=== PATIENT | female | born 1955 | race American Indian/Alaskan Native ===

== ENCOUNTER 2018-04-23 09:15 | Outpatient (CLI) | payer MEDICARE ==
[2018-04-23 09:45] LABS: Basophils % (Auto) 0.6 % (0.0-1.8); Eosinophils # (Auto) 0.1 K/mm3 (0.0-0.4); Hematocrit 35.2 % (30.3-42.9); Hemoglobin 11.9 gm/dl (10.1-14.3); Lymphocytes # (Auto) 0.8 K/mm3 (1.2-5.4); Lymphocytes % (Auto) 16.2 % (13.4-35.0); Mean Corpuscular HGB Conc 34 % (30-34); Mean Corpuscular Hemoglobin 30 pg (28-32); Mean Corpuscular Volume 89 fl (79-97); Monocytes # (Auto) 0.6 K/mm3 (0.0-0.8); Monocytes % (Auto) 11.2 % (0.0-7.3); Platelet Count 168 K/mm3 (140-440); Red Blood Count 3.94 M/mm3 (3.65-5.03); Red Cell Distribution Width 14.6 % (13.2-15.2)
[2018-04-23 09:58] LABS: Partial Thromboplastin Time 25.2 Sec. (24.2-36.6)
[2018-04-23 09:59] LABS: Albumin 3.9 g/dL (3.9-5); Calcium 9.3 mg/dL (8.4-10.2)
--- NOTE | 2018-04-23 10:33 | XRay Report ---
Chest 2 views: History: Cough. Findings: Normal cardiomediastinal silhouette. Trachea is midline. No consolidation, pneumothorax or pleural effusion. Impression: No acute cardiopulmonary findings.
== END 2018-04-23 09:16 | disposition home or self-care (01) ==
LOC: CARD 09:15
PROVIDERS: ATTEND Internal Medicine
DX: R05 Cough (principal); R07.9 Chest pain, unspecified; R53.83 Other fatigue; R79.1 Abnormal coagulation profile; F17.210 Nicotine dependence, cigarettes, uncomplicated; I10 Essential (primary) hypertension; E11.9 Type 2 diabetes mellitus without complications; Z90.49 Acquired absence of other specified parts of digestive tract; Z79.01 Long term (current) use of anticoagulants
CPT/HCPCS: 36415; 71046; 80053; 85025; 85610; 85730; 93005; 93010

== ENCOUNTER 2019-04-13 19:20 | Observation (INO) | payer MEDICARE ==
--- NOTE | 2019-04-13 19:38 | Emergency Department Report ---
Blank Doc - Documentation Documentation: This is a 64-year-old female that presents with bilateral feet swelling, chest pain and SOB. This initial assessment/diagnostic orders/clinical plan/treatment(s) is/are subject to change based on patient's health status, clinical progression and re- assessment by fellow clinical providers in the ED. Further treatment and workup at subsequent clinical providers discretion. Patient/guardians urged not to elope from the ED as their condition may be serious if not clinically assessed and managed. Initial orders include: 1- Patient sent to MAIN ED for further evaluation and treatment 2- EKG 3- CXR 4- labs
[2019-04-13 20:06] LABS: Basophils % (Auto) 0.7 % (0.0-1.8); Eosinophils # (Auto) 0.1 K/mm3 (0.0-0.4); Eosinophils % (Auto) 1.6 % (0.0-4.3); Hematocrit 33.5 % (30.3-42.9); Hemoglobin 11.4 gm/dl (10.1-14.3); Lymphocytes # (Auto) 2.2 K/mm3 (1.2-5.4); Lymphocytes % (Auto) 35.6 % (13.4-35.0); Mean Corpuscular HGB Conc 34 % (30-34); Mean Corpuscular Volume 92 fl (79-97); Monocytes # (Auto) 0.4 K/mm3 (0.0-0.8); Platelet Count 185 K/mm3 (140-440); Red Blood Count 3.62 M/mm3 (3.65-5.03)
[2019-04-13 20:15] LABS: INR 1.2 (0.87-1.13); Partial Thromboplastin Time 26.7 Sec. (24.2-36.6)
[2019-04-13 20:34] LABS: BUN/Creatinine Ratio 12; Blood Urea Nitrogen 14 mg/dL (7-17); Calcium 9.3 mg/dL (8.4-10.2); Hemolysis Index 13
--- NOTE | 2019-04-13 21:13 | Emergency Department Report ---
ED Chest Pain HPI - General Chief Complaint: Chest Pain Stated Complaint: CHEST PAIN/FEET SWELLING Time Seen by Provider: 04/13/19 21:01 Source: patient Mode of arrival: Ambulatory Limitations: No Limitations - History of Present Illness Initial Comments: Patient is a 64-year-old female that presents emergency room with complaints of chest pain. Patient states her chest pain is intermittent over the last 3-4 days. Patient states today she started having chest pain radiating to her left shoulder and left arm. Patient states her chest pain as a 6 out of 10. Patient states her pain is better with rest and worse with exertion. Patient is also complaining of bilateral lower extremity swelling. Patient denies lower externally pain. Patient states she is having dyspnea on exertion and shortness of breath at the same time when her chest pain comes on. Patient states she was recently taken off of lisinopril secondary to a cough. Patient's PCP is Dr. Miller. Complaint: chest pain -: Sudden Onset: during rest, during exertion Pain Location: substernal, left chest Pain Radiation: LUE Severity: moderate Severity scale (0 -10): 6 Quality: heaviness, sharp Consistency: intermittent Improves With: rest Worsens With: exertion re: dyspnea. denies: nausea, vomting, diaphoresis, sense of impending doom Other Symptoms: leg swelling. denies: cough, fever, syncope, rash, acid taste in mouth, palpitations, burping Treatments Prior to Arrival: none Aspirin use within the Past 7 Days: (1) Yes - Related Data On Oral Contraceptives: No Home Medications Medication Instructions Recorded Confirmed Last Taken Aspirin [Aspirin BABY CHEW TAB] 1 tab PO DAILY 08/28/14 04/13/19 08/17/15 Carvedilol [Coreg] 25 mg PO BID 08/28/14 04/13/19 08/17/15 Glimepiride 4 mg PO QDAY 08/28/14 04/13/19 08/17/15 Meloxicam [Mobic] 7.5 mg PO BID PRN 04/13/19 04/13/19 Unknown Previous Rx's Medication Instructions Recorded Last Taken Type HYDROcodone/APAP 10-325 [Gaines 10 - 325 mg PO TID PRN #1 tablet 08/17/15 Unknown Rx 10-325 mg TAB] Allergies Allergy/AdvReac Type Severity Reaction Status Date / Time lisinopril Allergy Unknown Verified 04/13/19 22:59 steroid pills Allergy Itching Uncoded 08/17/15 13:16 Heart Score - HEART Score History: Moderately suspicious EKG: Non-specific Age: 45-65 Risk factors: No known risk factors Troponin: < normal limit HEART Score: 3 ED Review of Systems ROS: Stated complaint: CHEST PAIN/FEET SWELLING Other details as noted in HPI Constitutional: denies: chills, fever Eyes: denies: eye pain, eye discharge, vision change ENT: denies: ear pain, throat pain Respiratory: shortness of breath, SOB with exertion, SOB at rest. denies: cough, wheezing Cardiovascular: chest pain, edema. denies: palpitations Endocrine: no symptoms reported Gastrointestinal: denies: abdominal pain, nausea, diarrhea Genitourinary: denies: urgency, dysuria, discharge Musculoskeletal: denies: back pain, joint swelling, arthralgia Skin: denies: rash, lesions Neurological: denies: headache, weakness, paresthesias Psychiatric: denies: anxiety, depression Hematological/Lymphatic: denies: easy bleeding, easy bruising ED Past Medical Hx - Past Medical History Previous Medical History?: Yes Hx Hypertension: Yes Hx Diabetes: Yes Additional medical history: high cholesterol. L shoulder pain - Surgical History Past Surgical History?: Yes Hx Cholecystectomy: Yes Additional Surgical History: T.L. carpal tunnel surgery - Family History Family history: no significant - Social History Smoking Status: Current Every Day Smoker Substance Use Type: Marijuana - Medications Home Medications: Home Medications Medication Instructions Recorded Confirmed Last Taken Type Aspirin [Aspirin BABY CHEW TAB] 1 tab PO DAILY 08/28/14 04/13/19 08/17/15 History Carvedilol [Coreg] 25 mg PO BID 08/28/14 04/13/19 08/17/15 History Glimepiride 4 mg PO QDAY 08/28/14 04/13/19 08/17/15 History HYDROcodone/APAP 10-325 [Gaines 10 - 325 mg PO TID PRN #1 tablet 08/17/15 04/13/19 Unknown Rx 10-325 mg TAB] Meloxicam [Mobic] 7.5 mg PO BID PRN 04/13/19 04/13/19 Unknown History ED Physical Exam - General Limitations: No Limitations General appearance: alert, in no apparent distress - Head Head exam: Present: atraumatic, normocephalic - Eye Eye exam: Present: normal appearance - ENT ENT exam: Present: mucous membranes moist - Neck Neck exam: Present: normal inspection - Respiratory Respiratory exam: Present: normal lung sounds bilaterally. Absent: respiratory distress, wheezes, chest wall tenderness, accessory muscle use - Cardiovascular Cardiovascular Exam: Present: regular rate, normal rhythm. Absent: systolic murmur, diastolic murmur, rubs, gallop - GI/Abdominal GI/Abdominal exam: Present: soft, normal bowel sounds. Absent: distended, tenderness, guarding - Rectal Rectal exam: Present: deferred - Extremities Exam Extremities exam: Present: normal inspection (except for bilateral pedal edema.), full ROM, normal capillary refill, pedal edema. Absent: tenderness, joint swelling, calf tenderness - Back Exam Back exam: Present: normal inspection - Neurological Exam Neurological exam: Present: alert, oriented X3 - Psychiatric Psychiatric exam: Present: normal affect, normal mood - Skin Skin exam: Present: warm, dry, intact, normal color. Absent: rash ED Course Vital Signs 04/13/19 04/13/19 04/13/19 19:36 19:37 21:20 Temperature 97.6 F 97.9 F Pulse Rate 45 L 48 L 57 L Respiratory 18 12 Rate Blood Pressure 159/78 Blood Pressure 145/57 [Left] O2 Sat by Pulse 100 99 Oximetry 04/13/19 04/13/19 04/13/19 21:30 22:00 22:16 Temperature Pulse Rate 47 L 49 L 48 L Respiratory 10 L 13 13 Rate Blood Pressure 145/57 143/73 125/68 Blood Pressure [Left] O2 Sat by Pulse 94 97 100 Oximetry 04/13/19 04/13/19 04/13/19 22:30 22:46 23:00 Temperature Pulse Rate 43 L 46 L 50 L Respiratory 12 14 14 Rate Blood Pressure 142/61 147/64 147/64 Blood Pressure [Left] O2 Sat by Pulse 98 96 100 Oximetry - Reevaluation(s) Reevaluation #1: Discussed all results with patient. Patient will be admitted to the hospitalist service. Patient agrees to plan of care. 04/13/19 22:34 - Consultations Consultation #1: Hospitalist consultation for admission. Hospitalist to admit patient. Hospitalist to assume care patient. 04/13/19 22:34 YONG score - Yong Score Age > 65: (0) No Aspirin use within the Past 7 Days: (1) Yes 3 or more CAD Risk Factors: (0) No 2 or more Angina events in past 24 hrs: (1) Yes Known CAD with more than 50% Stenosis: (0) No Elevated Cardiac Markers: (0) No ST Deviation Greater than 0.5mm: (0) No YONG Score: 2 ED Medical Decision Making - Lab Data Result diagrams: 04/13/19 19:51 04/13/19 19:51 - EKG Data -: EKG Interpreted by Me EKG shows normal: sinus rhythm, axis, intervals, QRS complexes, ST-T waves Rate: bradycardia - Radiology Data Radiology results: report reviewed, image reviewed interpreted by me: Negative chest x-ray PROCEDURE: XR CHEST ROUTINE 2V TECHNIQUE: PA and lateral chest radiographs were obtained. HISTORY: Chest Pain COMPARISONS: 04/23/2018. FINDINGS: Heart: Normal. Mediastinum/Vessels: Normal. Lungs/Pleural space: No infiltrate, effusion, or pneumothorax. Bony thorax: No acute osseous abnormality. IMPRESSION: No radiographic evidence of acute abnormality. - Medical Decision Making Patient is a 64-year-old female that presents to emergency room with chest pain and shortness of breath. Chest pain radiating to her left upper extremity. Patient was admitted to the hospitalist service for further evaluation and treatment. Patient's labs are unremarkable. Patient's BMP negative. Patient's troponin negative. Patient's initial cardiac workup negative. Patient chest x-ray negative. - Differential Diagnosis chest pain. Shortness breath. ACS. Critical Care Time: Yes Critical care attestation.: If time is entered above; I have spent that time in minutes in the direct care of this critically ill patient, excluding procedure time. Critical Care Time: 35 minutes ED Disposition Clinical Impression: SOB (shortness of breath), Pedal edema, Bradycardia Chest pain Qualifiers: Chest pain type: unspecified Qualified Code(s): R07.9 - Chest pain, unspecified Hypertension Qualifiers: Hypertension type: essential hypertension Qualified Code(s): I10 - Essential (primary) hypertension Disposition: OP ADMIT IP TO THIS HOSP Is pt being admited?: Yes Does the pt Need Aspirin: No Condition: Critical Instructions: Hypertension (ED) Referrals: HARRISON MILLER MD [Primary Care Provider] - 3-5 Days Time of Disposition: 22:36
[2019-04-13] MEDS ORDERED: ASPIRIN PO ONE (22:36)
[2019-04-13] MEDS ORDERED: MORPHINE IV ONE (22:40)
--- NOTE | 2019-04-13 22:56 | XRay Report ---
PROCEDURE: XR CHEST ROUTINE 2V TECHNIQUE: PA and lateral chest radiographs were obtained. HISTORY: Chest Pain COMPARISONS: 04/23/2018. FINDINGS: Heart: Normal. Mediastinum/Vessels: Normal. Lungs/Pleural space: No infiltrate, effusion, or pneumothorax. Bony thorax: No acute osseous abnormality. IMPRESSION: No radiographic evidence of acute abnormality. This document is electronically signed by Hilda Farr MD., Apr 13 2019 10:54:42 PM ET
[2019-04-13] MEDS ORDERED: MORPHINE IV PRN (23:16)
[2019-04-13] MEDS ORDERED: ZOFRAN IV PRN (23:16)
[2019-04-13] MEDS ORDERED: TYLENOL PO PRN (23:16)
[2019-04-13] MEDS ORDERED: SODIUM CHLORIDE FLUSH SYRINGE 10 ML IV PRN (23:16)
[2019-04-13] MEDS ORDERED: NITROSTAT SL PRN (23:18)
--- NOTE | 2019-04-14 00:15 | History and Physical Report ---
<VANE CHAPMAN - Last Filed: 04/14/19 00:48> History of Present Illness Date of examination: 04/13/19 Date of admission: 04/13/19 23:16 Chief complaint: Chest pain History of present illness: 64-year-old -Russian female with history of marijuana abuse, diabetes, hypertension who presents to [facility] ED with complaints of intermittent chest pain for the past 4 days. Patient states that her chest pain is left-sided substernal radiates to left extremity and right side of chest. She describes her pain as sharp and rates it 8/10. Her pain is activated with activity and relieved with rest. Associated factors includes dyspnea with exertion when experiencing chest pain. Additionally she complains of bilateral lower extremity edema for the past 3 weeks. Patient states that she has been experiencing lower extremity edema since her PCP discontinued lisinopril. Denies fever, chills, hemoptysis, nausea, vomiting, headache or diaphoresis. Past History Past Medical History: diabetes, hypertension, hyperlipidemia Past Surgical History: Other (tubal ligation, carpal tunnel surgery) Social history: smoking (marijuana) Medications and Allergies Allergies Allergy/AdvReac Type Severity Reaction Status Date / Time lisinopril Allergy Unknown Verified 04/13/19 22:59 steroid pills Allergy Itching Uncoded 08/17/15 13:16 Home Medications Medication Instructions Recorded Confirmed Last Taken Type Aspirin [Aspirin BABY CHEW TAB] 1 tab PO DAILY 08/28/14 04/13/19 08/17/15 History Glimepiride 4 mg PO QDAY 08/28/14 04/13/19 08/17/15 History HYDROcodone/APAP 10-325 [Gustine 10 - 325 mg PO TID PRN #1 tablet 08/17/15 04/13/19 Unknown Rx 10-325 mg TAB] Meloxicam [Mobic] 7.5 mg PO BID PRN 04/13/19 04/13/19 Unknown History Active Meds: Active Medications Acetaminophen (Tylenol) 650 mg PO Q4H PRN PRN Reason: Pain MILD(1-3)/Fever >100.5/BLANKENSHIP Aspirin (Baby Aspirin) 81 mg PO QDAY KAVITA Atorvastatin Calcium (Lipitor) 20 mg PO QHS KAVITA Carvedilol (Coreg) 25 mg PO BID KAVITA Clopidogrel Bisulfate (Plavix) 75 mg PO QDAY KAVITA Morphine Sulfate (Morphine) 2 mg IV Q4H PRN PRN Reason: Pain, Moderate (4-6) Stop: 04/14/19 23:59 Nitroglycerin (Nitrostat) 0.4 mg SL Q5M PRN PRN Reason: Chest Pain Ondansetron HCl (Zofran) 4 mg IV Q8H PRN PRN Reason: Nausea And Vomiting Sodium Chloride (Sodium Chloride Flush Syringe 10 Ml) 10 ml IV BID KAVITA Sodium Chloride (Sodium Chloride Flush Syringe 10 Ml) 10 ml IV PRN PRN PRN Reason: LINE FLUSH Review of Systems All systems: negative (we reviewed and no additional remarkable complaints except as noted below) Cardiovascular: chest pain, shortness of breath Respiratory: cough, shortness of breath, dyspnea on exertion Exam - Physical Exam Narrative exam: Physical exam General appearance: Present: Mild distress, looks stated age, alert and oriented 3 - EENT Eyes: Present: PERRL, EOM intact ENT: hearing intact, normal dentition - Neck Neck: Present: supple, normal ROM - Respiratory Respiratory effort: Non-labored Respiratory: bilateral: diminished (bases) - Cardiovascular Heart rate: 39 (bpm) Rhythm: Sinus bradycardia Heart Sounds: Present: S1 & S2. Absent: rub, click - Extremities Extremities: no ischemia, pulses intact, abnormal (2+ pitting BLE edema) - Peripheral Assessment Peripheral Pulses: within normal limits - Abdominal General gastrointestinal: soft, non-tender, normal bowel sounds - Integumentary Integumentary: Present: warm, dry - Musculoskeletal Musculoskeletal: Able to move all extremities - Psychiatric Psychiatric: Appropriate for situation, cooperative - Constitutional Vitals: Temp Pulse Resp BP Pulse Ox 97.9 F 50 L 14 147/64 100 04/13/19 21:20 04/13/19 23:00 04/13/19 23:00 04/13/19 23:00 04/13/19 23:00 Results - Labs CBC & Chem 7: 04/13/19 19:51 04/13/19 19:51 Labs: Laboratory Last Values WBC 6.2 K/mm3 (4.5-11.0) 04/13/19 19:51 RBC 3.62 M/mm3 (3.65-5.03) L 04/13/19 19:51 Hgb 11.4 gm/dl (10.1-14.3) 04/13/19 19:51 Hct 33.5 % (30.3-42.9) 04/13/19 19:51 MCV 92 fl (79-97) 04/13/19 19:51 MCH 31 pg (28-32) 04/13/19 19:51 MCHC 34 % (30-34) 04/13/19 19:51 RDW 15.0 % (13.2-15.2) 04/13/19 19:51 Plt Count 185 K/mm3 (140-440) 04/13/19 19:51 Lymph % (Auto) 35.6 % (13.4-35.0) H 04/13/19 19:51 [place] % (Auto) 7.0 % (0.0-7.3) 04/13/19 19:51 Eos % (Auto) 1.6 % (0.0-4.3) 04/13/19 19:51 Baso % (Auto) 0.7 % (0.0-1.8) 04/13/19 19:51 Lymph # 2.2 K/mm3 (1.2-5.4) 04/13/19 19:51 [place] # 0.4 K/mm3 (0.0-0.8) 04/13/19 19:51 Eos # 0.1 K/mm3 (0.0-0.4) 04/13/19 19:51 Baso # 0.0 K/mm3 (0.0-0.1) 04/13/19 19:51 Seg Neutrophils % 55.1 % (40.0-70.0) 04/13/19 19:51 Seg Neutrophils # 3.4 K/mm3 (1.8-7.7) 04/13/19 19:51 PT 16.0 Sec. (12.2-14.9) H 04/13/19 19:51 INR 1.20 (0.87-1.13) H 04/13/19 19:51 APTT 26.7 Sec. (24.2-36.6) 04/13/19 19:51 Sodium 142 mmol/L (137-145) 04/13/19 19:51 Potassium 3.8 mmol/L (3.6-5.0) 04/13/19 19:51 Chloride 107.0 mmol/L (98-107) 04/13/19 19:51 Carbon Dioxide 24 mmol/L (22-30) 04/13/19 19:51 15 mmol/L 04/13/19 19:51 BUN 14 mg/dL (7-17) 04/13/19 19:51 1.2 mg/dL (0.7-1.2) 04/13/19 19:51 Estimated GFR 55 ml/min 04/13/19 19:51 12 % 04/13/19 19:51 Glucose 127 mg/dL (65-100) H 04/13/19 19:51 Calcium 9.3 mg/dL (8.4-10.2) 04/13/19 19:51 < 0.010 ng/mL (0.00-0.029) 04/13/19 22:28 NT-Pro-B Natriuret Pep 423.8 pg/mL (0-900) 04/13/19 19:51 Short CBC 04/13/19 Range/Units 19:51 WBC 6.2 (4.5-11.0) K/mm3 Hgb 11.4 (10.1-14.3) gm/dl Hct 33.5 (30.3-42.9) % Plt Count 185 (140-440) K/mm3 BMP 04/13/19 19:51 Sodium 142 Potassium 3.8 Chloride 107.0 Carbon Dioxide 24 BUN 14 Creatinine 1.2 Glucose 127 H Calcium 9.3 Cardiac Enzymes 04/13/19 04/13/19 Range/Units 19:51 22:28 Troponin T < 0.010 < 0.010 (0.00-0.029) ng/mL - Imaging and Cardiology EKG: image reviewed (sinus bradycardia at 39 bpm, unrevealing for acute ischemic abnormalities) Chest x-ray: report reviewed (unrevealing for acute cardiopulmonary abnormalities), image reviewed Assessment and Plan Assessment and plan: 64-year-old -Russian female with history of marijuana abuse, diabetes, hypertension who presents to [facility] ED with complaints of intermittent chest pain for the past 4 days. Additionally she complains of bilateral lower extremity edema for the past 3 weeks. CXR unrevealing for any acute cardiopulmonary abnormalities. EKG reveals sinus bradycardia at 39 bpm. Troponin negative 2. Will admit as OBS to telemetry unit for continuous telemetry monitoring. Patient will be kept nothing by mouth with plans for Lexiscan and echo in the morning. Cardiology has been consulted. ACS Acute chest pain Sinus bradycardia Hypertension DM2 Marijuana abuse Plan: Continue supportive care Pain management Continuous telemetry monitoring Nothing by mouth 1 time dose Lasix 40 mg Monitor BP Hold beta marlyn Start Norvasc 5 mg daily IV hydralazine when necessary Aspirin, Plavix, statin HgbA1c pending POC BG monitoring Sliding-scale coverage Echo and Lexiscan pending Cardiology consultation Counseled for marijuana cessation DVT PPX on plavix and SCD's Advance Directives: No VTE prophylaxis?: Chemical Plan of care discussed with patient/family: Yes <TOYA VALDOVINOS - Last Filed: 04/15/19 07:11> History of Present Illness Date of admission: 04/13/19 23:16 Exam - Constitutional Vitals: Temp Pulse Resp BP Pulse Ox 97.6 F 42 L 14 144/69 100 04/14/19 08:04 04/14/19 14:46 04/14/19 08:04 04/14/19 09:20 04/14/19 08:04 Results - Labs CBC & Chem 7: 04/14/19 04:53 04/14/19 04:53 Labs: Laboratory Last Values WBC 5.6 K/mm3 (4.5-11.0) 04/14/19 04:53 RBC 3.50 M/mm3 (3.65-5.03) L 04/14/19 04:53 Hgb 10.7 gm/dl (10.1-14.3) 04/14/19 04:53 Hct 32.1 % (30.3-42.9) 04/14/19 04:53 MCV 92 fl (79-97) 04/14/19 04:53 MCH 31 pg (28-32) 04/14/19 04:53 MCHC 33 % (30-34) 04/14/19 04:53 RDW 15.2 % (13.2-15.2) 04/14/19 04:53 Plt Count 162 K/mm3 (140-440) 04/14/19 04:53 Lymph % (Auto) 33.7 % (13.4-35.0) 04/14/19 04:53 [place] % (Auto) 7.9 % (0.0-7.3) H 04/14/19 04:53 Eos % (Auto) 1.7 % (0.0-4.3) 04/14/19 04:53 Baso % (Auto) 0.7 % (0.0-1.8) 04/14/19 04:53 Lymph # 1.9 K/mm3 (1.2-5.4) 04/14/19 04:53 [place] # 0.4 K/mm3 (0.0-0.8) 04/14/19 04:53 Eos # 0.1 K/mm3 (0.0-0.4) 04/14/19 04:53 Baso # 0.0 K/mm3 (0.0-0.1) 04/14/19 04:53 Seg Neutrophils % 56.0 % (40.0-70.0) 04/14/19 04:53 Seg Neutrophils # 3.1 K/mm3 (1.8-7.7) 04/14/19 04:53 PT 16.0 Sec. (12.2-14.9) H 04/13/19 19:51 INR 1.20 (0.87-1.13) H 04/13/19 19:51 APTT 26.7 Sec. (24.2-36.6) 04/13/19 19:51 Sodium 142 mmol/L (137-145) 04/14/19 04:53 Potassium 3.5 mmol/L (3.6-5.0) L 04/14/19 04:53 Chloride 106.8 mmol/L (98-107) 04/14/19 04:53 Carbon Dioxide 24 mmol/L (22-30) 04/14/19 04:53 15 mmol/L 04/14/19 04:53 BUN 12 mg/dL (7-17) 04/14/19 04:53 1.2 mg/dL (0.7-1.2) 04/14/19 04:53 Estimated GFR 55 ml/min 04/14/19 04:53 10 % 04/14/19 04:53 Glucose 116 mg/dL (65-100) H 04/14/19 04:53 POC Glucose 147 (70-105) H 04/14/19 12:00 6.6 % (4-6) H 04/13/19 23:37 Calcium 9.0 mg/dL (8.4-10.2) 04/14/19 04:53 < 0.010 ng/mL (0.00-0.029) 04/13/19 22:28 NT-Pro-B Natriuret Pep 423.8 pg/mL (0-900) 04/13/19 19:51 Triglycerides 131 mg/dL (2-149) 04/13/19 23:37 Cholesterol 129 mg/dL (50-199) 04/13/19 23:37 92 mg/dL (50-130) 04/13/19 23:37 30 mg/dL (40-59) L 04/13/19 23:37 4.30 % 04/13/19 23:37 TSH 4.440 mlU/mL (0.270-4.200) H 04/14/19 11:25 Free T4 0.90 ng/dL (0.76-1.46) 04/14/19 11:25 Assessment and Plan Assessment and plan: I personally discussed the patient with the ETCHER MACHINE-C. I agree with the above assessment and plan
[2019-04-14] MEDS ORDERED: APRESOLINE IV PRN (00:51)
[2019-04-14] MEDS ORDERED: D50W (25GM) Syringe IV PRN (00:53)
[2019-04-14] MEDS ORDERED: LASIX IV ONE (01:00)
[2019-04-14 01:17] LABS: Chol/HDL Ratio 4.3 %
[2019-04-14 05:52] LABS: Basophils % (Auto) 0.7 % (0.0-1.8); Eosinophils # (Auto) 0.1 K/mm3 (0.0-0.4); Eosinophils % (Auto) 1.7 % (0.0-4.3); Hematocrit 32.1 % (30.3-42.9); Hemoglobin 10.7 gm/dl (10.1-14.3); Lymphocytes # (Auto) 1.9 K/mm3 (1.2-5.4); Lymphocytes % (Auto) 33.7 % (13.4-35.0); Mean Corpuscular HGB Conc 33 % (30-34); Mean Corpuscular Volume 92 fl (79-97); Monocytes # (Auto) 0.4 K/mm3 (0.0-0.8); Monocytes % (Auto) 7.9 % (0.0-7.3); Platelet Count 162 K/mm3 (140-440); Red Cell Distribution Width 15.2 % (13.2-15.2)
[2019-04-14] MEDS: HumaLOG SUB-Q SCH ×2 (07:30→11:30)
[2019-04-14] MEDS ORDERED: LEXISCAN IV ONE (09:00)
[2019-04-14] MEDS ORDERED: PLAVIX PO SCH (10:00)
[2019-04-14] MEDS ORDERED: COREG PO SCH (10:00)
[2019-04-14] MEDS ORDERED: SODIUM CHLORIDE FLUSH SYRINGE 10 ML IV SCH (10:00)
[2019-04-14] MEDS ORDERED: BABY ASPIRIN PO SCH (10:00)
[2019-04-14] MEDS ORDERED: NORVASC PO SCH (10:00)
--- NOTE | 2019-04-14 10:46 | Consultation ---
History of Present Illness Consult date: 04/14/19 Requesting physician: VANE CHAPMAN Consult reason: chest pain History of present illness: The patient is a 64-year-old female with a past medical history of HTN, HLP, DM, tobacco use. She is previously unknown to our practice. Her PCP is Dr. Wheat. She presented to emergency room with complaints of chest pain for the past 3-4 days. She describes her chest pain as an intermittent precordial stabbing and pressure which has no clear aggravating or alleviating factors. Pt also reports some intermittent SOB and BLE edema which has resolved since receiving IV lasix. Pt reports that she was recently taken off lisinopril due to a cough. She states that her symptoms developed after discontinuation of lisinopril. Pt was scheduled for stress test and is evaluated in stress lab. She currently denies any chest pain. She denies any palpitations, n/v, diaphoresis, dizziness or syncope. She denies any history of CAD, AMI or HF. She reports that she underwent stress testing about 2 years ago at [place] and was told the stress test was normal. Past History Past Medical History: diabetes, hypertension, hyperlipidemia Past Surgical History: Other (tubal ligation, carpal tunnel surgery) Social history: smoking (tobacco ) Medications and Allergies Allergies Allergy/AdvReac Type Severity Reaction Status Date / Time lisinopril Allergy Unknown Verified 04/13/19 22:59 steroid pills Allergy Itching Uncoded 08/17/15 13:16 Home Medications Medication Instructions Recorded Confirmed Last Taken Type Aspirin [Aspirin BABY CHEW TAB] 1 tab PO DAILY 08/28/14 04/13/19 08/17/15 History Carvedilol [Coreg] 25 mg PO BID 08/28/14 04/13/19 08/17/15 History Glimepiride 4 mg PO QDAY 08/28/14 04/13/19 08/17/15 History HYDROcodone/APAP 10-325 [[place] 10 - 325 mg PO TID PRN #1 tablet 08/17/15 04/13/19 Unknown Rx 10-325 mg TAB] Meloxicam [Mobic] 7.5 mg PO BID PRN 04/13/19 04/13/19 Unknown History Active Meds: Active Medications Acetaminophen (Tylenol) 650 mg PO Q4H PRN PRN Reason: Pain MILD(1-3)/Fever >100.5/BLANKENSHIP Amlodipine Besylate (Norvasc) 5 mg PO QDAY [facility] Aspirin (Baby Aspirin) 81 mg PO QDAY [facility] Atorvastatin Calcium (Lipitor) 20 mg PO QHS [facility] Clopidogrel Bisulfate (Plavix) 75 mg PO QDAY [facility] Dextrose (D50w (25gm) Syringe) 50 ml IV PRN PRN PRN Reason: Hypoglycemia Hydralazine HCl (Apresoline) 10 mg IV Q4HR PRN PRN Reason: Blood Pressure Insulin Human Lispro (Humalog) 0 unit SUB-Q ACHS [facility]; Protocol Morphine Sulfate (Morphine) 2 mg IV Q4H PRN PRN Reason: Pain, Moderate (4-6) Stop: 04/14/19 23:59 Nitroglycerin (Nitrostat) 0.4 mg SL Q5M PRN PRN Reason: Chest Pain Ondansetron HCl (Zofran) 4 mg IV Q8H PRN PRN Reason: Nausea And Vomiting Sodium Chloride (Sodium Chloride Flush Syringe 10 Ml) 10 ml IV BID [facility] Sodium Chloride (Sodium Chloride Flush Syringe 10 Ml) 10 ml IV PRN PRN PRN Reason: LINE FLUSH Last Admin: 04/14/19 02:02 Dose: 10 ml Documented by: Review of Systems Constitutional: no weight loss, no weight gain, no fever, no chills, no sweats Ears, nose, mouth and throat: no ear pain, no nose pain, no sinus pressure, no sinus pain Cardiovascular: chest pain, orthopnea, edema, shortness of breath, dyspnea on exertion, leg edema, no palpitations, no rapid/irregular heart beat, no syncope, no lightheadedness Respiratory: shortness of breath, dyspnea on exertion, no cough, no congestion, no wheezing, no pain on inspiration Gastrointestinal: no abdominal pain, no nausea, no vomiting, no diarrhea, no constipation, no change in bowel habits Genitourinary Female: no pelvic pain, no flank pain, no dysuria, no urinary frequency, no urgency Musculoskeletal: no neck stiffness, no neck pain, no shooting arm pain, no arm numbness/tingling, no low back pain, no shooting leg pain Integumentary: no rash, no pruritis, no redness, no sores, no wounds Neurological: no head injury, no paralysis, no weakness, no parathesias, no numbness, no tingling, no seizures, no syncope Psychiatric: no anxiety Endocrine: no cold intolerance, no heat intolerance Hematologic/Lymphatic: no easy bruising, no easy bleeding Allergic/Immunologic: no urticaria, no wheezing Physical Examination Vital Signs Temp Pulse Resp BP Pulse Ox 97.6 F 45 L 18 159/78 100 04/13/19 19:36 04/13/19 19:36 04/13/19 19:36 04/13/19 19:36 04/13/19 19:36 General appearance: no acute distress HEENT: Positive: PERRL, Normocephaly, Mucus Membranes Moist Neck: Positive: neck supple, trachea midline Cardiac: Positive: Reg Rate and Rhythm, S1/S2 Lungs: Positive: clear to auscultation Neuro: Positive: Grossly Intact Abdomen: Positive: Soft, Tender Skin: Negative: Rash, Wound Musculoskeletal: No Pain Extremities: Absent: edema Results 04/14/19 04:53 04/14/19 04:53 Coagulation 04/13/19 Range/Units 19:51 PT 16.0 H (12.2-14.9) Sec. INR 1.20 H (0.87-1.13) APTT 26.7 (24.2-36.6) Sec. Lipids 04/13/19 Range/Units 23:37 Triglycerides 131 (2-149) mg/dL Cholesterol 129 (50-199) mg/dL HDL Cholesterol 30 L (40-59) mg/dL Cholesterol/HDL Ratio 4.30 % CBC 04/13/19 04/14/19 Range/Units 19:51 04:53 WBC 6.2 5.6 (4.5-11.0) K/mm3 RBC 3.62 L 3.50 L (3.65-5.03) M/mm3 Hgb 11.4 10.7 (10.1-14.3) gm/dl Hct 33.5 32.1 (30.3-42.9) % Plt Count 185 162 (140-440) K/mm3 Lymph # 2.2 1.9 (1.2-5.4) K/mm3 [place] # 0.4 0.4 (0.0-0.8) K/mm3 Eos # 0.1 0.1 (0.0-0.4) K/mm3 Baso # 0.0 0.0 (0.0-0.1) K/mm3 Comprehensive Metabolic Panel 04/13/19 04/14/19 Range/Units 19:51 04:53 Sodium 142 142 (137-145) mmol/L Potassium 3.8 3.5 L (3.6-5.0) mmol/L Chloride 107.0 106.8 (98-107) mmol/L Carbon Dioxide 24 24 (22-30) mmol/L BUN 14 12 (7-17) mg/dL Creatinine 1.2 1.2 (0.7-1.2) mg/dL Glucose 127 H 116 H (65-100) mg/dL Calcium 9.3 9.0 (8.4-10.2) mg/dL - Imaging and Cardiology Echo: pending EKG: report reviewed, image reviewed EKG interpretations - Telemetry EKG Rhythm: Sinus Rhythm - EKG Sinus rhythms and dysrhythmias: sinus rhythm Assessment and Plan S/p lexiscan MPI stress test this morning which was negative for ischemia, EF 62%. Pt reports resolution of symptoms currently. Pt noted to have asymptomatic sinus bradycardia with HR low of 38bpm overnight. Pt reports knowledge of chronic sinus bradycardia and she is noted to be on Coreg 25mg BID at home. Recommend discontinuation of AV ashanti blocking agents and agree with [facility]. Obtain thyroid profile. Can consider OP Holter study. Currently stable cardiac status. Pt may discharge home from cardiology standpoint pending thyroid function is WNL. Recommend follow up in our office with Dr. Gomez within 1-2 weeks of hospital disc [facility] ([phone]). The patient has been seen in conjunction with Dr. Gomez who agrees with the as sessment and plan of care. - Patient Problems (1) Chest pain Current Visit: Yes Status: Acute Qualifiers: Chest pain type: unspecified Qualified Code(s): R07.9 - Chest pain, unspecified (2) Pedal edema Current Visit: Yes Status: Acute (3) SOB (shortness of breath) Current Visit: Yes Status: Acute (4) Hypertension Current Visit: Yes Status: Chronic Qualifiers: Hypertension type: essential hypertension Qualified Code(s): I10 - Essential (primary) hypertension (5) Diabetes Current Visit: Yes Status: Chronic (6) Dyslipidemia Current Visit: Yes Status: Chronic (7) Sinus bradycardia Current Visit: Yes Status: Chronic
[2019-04-14 11:05] VITALS: BP 144/69
--- NOTE | 2019-04-14 12:02 | Discharge Summary ---
Providers - Providers Date of Admission: 04/13/19 23:16 Date of discharge: 04/14/19 Attending physician: SAUNDRA MEDINA 04/13/19 23:19 Consult to Cardiology [CONS] Routine Consulting Provider: JEFF MCKEON Reason For Exam: chest pain 04/14/19 00:53 Consult to Dietitian/Nutrition [CONS] Routine Physician Instructions: Reason For Exam: Reason for Consult: Diet education Primary care physician: HARRISON MILLER Hospitalization Condition: Good Hospital course: Patient is a 64-year-old woman with a history of bradycardia, marijuana abuse, tobacco dependency, DM type 2 and hypertension who presents to [facility] ED with complaints of intermittent chest pains, intermittent BLAND and BLE edema which has resolved after receiving IV lasix. * CXR unrevealing for any acute cardiopulmonary abnormalities. EKG reveals sinus bradycardia at 39 bpm. Troponin negative 2. * S/p lexiscan MPI stress test this morning which was negative for ischemia, EF 62% Discharge Diagnoses: ACS ruled out Acute chest pain, atypical, most likely costochondritis Sinus bradycardia on Coreg at home, ECHO cancelled by Cardiology, TSH is elevated at 4.44 but normal free T4 of 0.90==>subclinical hypothyroidism, needs close outpatient follow up. Hypertension DM2 Marijuana abuse and tobacco dependency: dependency counselor on stopping Disposition: DC-01 TO HOME OR SELFCARE Time spent for discharge: 37 minutes Core Measure Documentation - Palliative Care Palliative Care/ Comfort Measures: Not Applicable - Core Measures Any of the following diagnoses?: none - VTE Discharge Requirements Deep Vein Thrombosis/Pulmonary Embolism Present on Admission: No Has pt received <5 days of overlap therapy or INR<2.0: No Anticoagulant overlap therapy prescribed at discharge: No Contraindication No Overlap Therapy order at DC: Not Indicated Exam - Physical Exam Narrative exam: Gen: WDWN, NAD, Awake, Alert, Orientated HEENT: NCAT, EOMI, PERRL, OP Clear Neck: supple, no adenopathy, no thyromegaly, no JVD CVS/Heart: RRR, normal S1S2, pulses present bilaterally Chest/Lungs: CTA B, Symmetrical chest expansion, good air entry bilaterally, reproducible chest wall tenderness GI/Abdomen: soft, NTND, good bowel sounds, no guarding or rebound /Bladder: no suprapubic tenderness, no CVA or paraspinal tenderness Extermity/Skin: no c/c/e, no obvious rash MSK: FROM x 4 Neuro: CN 2-12 grossly intact, no new focal deficits Psych: calm - Constitutional Vitals: Temp Pulse Resp BP Pulse Ox 97.6 F 49 L 14 144/69 100 04/14/19 08:04 04/14/19 08:04 04/14/19 08:04 04/14/19 09:20 04/14/19 08:04 Plan Activity: no driving until cleared by PCP, other (no strenous activity unless cleared by Periodontist) Diet: low salt Special Instructions: record daily BP diary, smoking cessation Additional Instructions: DO NOT take Coreg also known as Carvedilol anymore Follow up with: HARRISON MILLER MD [Primary Care Provider] - 3-5 Days JEFF MCKEON MD [Staff Physician] - 7 Days
[2019-04-14 12:03] LABS: Free T4 (Free Thyroxine) 0.9 ng/dL (0.76-1.46)
--- NOTE | 2019-04-15 02:14 | Treadmill Report ---
NUCLEAR CARDIAC IMAGING REPORT INDICATION FOR PROCEDURE: Chest pain. Informed consent was obtained. Rest and stress nuclear cardiac imaging were performed following the intravenous administration of 10 and 28 mCi of technetium 99m Myoview respectively, per protocol. Vasodilator stress was achieved with the intravenous administration of 0.4 mg of Lexiscan per protocol. Images were acquired in a 180-degree arc from 45 degrees FISHER to 45 degrees LPO. After data acquisition and reconstruction, the images were processed and reoriented into the vertical long, horizontal long, and horizontal short axis slices. A polar color map of the horizontal short axis slices was generated and reviewed. The rotating planar images were reviewed in cinematic format on the computer console. Gated SPECT imaging demonstrates a post-stress left ventricular ejection fraction of 62%. Left ventricular segmental wall motion is normal. Myocardial perfusion imaging demonstrates no significant cavity change between stress and rest. No significant stress induced perfusion defects were noted. Nuclear cardiac imaging demonstrates grossly normal post-stress left ventricular systolic function with no significant evidence of myocardial ischemia or necrosis. [facility]# [id number] ERIC/NICANOR SOTELO
== END 2019-04-14 15:30 | disposition home or self-care (01) ==
LOC: ED 19:20 → 4A 23:16
PROVIDERS: ADMIT Internal Medicine; ATTEND Internal Medicine
DX: R07.89 Other chest pain (principal); R60.9 Edema, unspecified; R06.02 Shortness of breath; I10 Essential (primary) hypertension; E11.9 Type 2 diabetes mellitus without complications; E78.5 Hyperlipidemia, unspecified; R00.1 Bradycardia, unspecified; E78.00 Pure hypercholesterolemia, unspecified; F17.200 Nicotine dependence, unspecified, uncomplicated; Z98.890 Other specified postprocedural states; Z98.51 Tubal ligation status; Z79.4 Long term (current) use of insulin; Z79.82 Long term (current) use of aspirin; Z90.49 Acquired absence of other specified parts of digestive tract
CPT/HCPCS: 36415; 71046; 78452; 80048; 80061; 82962; 83036; 83880; 84439; 84443; 84484; 85025; 85610; 85730; 93005; 93010; 93017; 96374; 96375; 99291; A9502; G0378; J1940; J2270; J2785